=== PATIENT | male | born 1960 | race Caucasian/White ===

== ENCOUNTER → 2018-06-06 | Outpatient (CLI) | payer OTHER ==
[~2018-06-06] VITALS: Ht 180.3 cm; Wt 74.8 kg
[~2018-06-06] MED LIST: IRON325 PO; LOSARTAN-HCTZ1 EAC1 PO; SYNTHROID100 MC1 PO; VITAMIN D31000 UNIT PO
--- NOTE | ~2018-06-06 | PATH ---
[facility] [place] [address] PATHOLOGY RPT PROCEDURE Name: TANIA LOBO Room #: REG [facility] Zuleyka.#: [id number] Admission: 06/06/18 Date of : 64 Discharge: Report #: [id number] Path Case #: [id number] [facility] Accession Number: [id number] . 01 Material submitted: . PART A: BIOPSY CECAL POLYP X2 PART B: POLYP AT ASCENDING COLON PART C: POLYP AT DESCENDING COLON . 01 Clinical history: . Pre-OP DX: Screening Post-OP DX: Colon polyps, hemorrhoids . 02 Diagnosis: A. Poly x 2, cecal polyp, endoscopic biopsy: - One fragment showing tubular adenoma; negative for high-grade dysplasia. - Remainder fragments showing reactive and hyperplastic changes without any dysplasia. . B. Polyp, at ascending colon, endoscopic biopsy: - Multiple fragments with tubular adenoma. - Few with extensive cautery limiting interpretation (please see comment). . . C. Polyp, at descending colon, endoscopic biopsy: - Tubulovillous adenoma. - Negative for high-grade dysplasia (please see comment). [facility]/06/07/2018 . 02 Comment: B. Examination shows multiple fragments of a tubular adenoma. Few show stratification of nuclei along with hyperchromasia. These fragments; however, are associated with marked cautery limiting interpretation within these areas and are worrisome for high-grade dysplasia. Please correlate with endoscopic findings for complete removal of this polyp. . Co-review (B1 and C3): Dr. Kaylyn Macias (IUV:pit 06/07/2018) . 02 Electronically signed: . Samra Velasco MD, Pathologist NPI- [id number] . 01 Gross description: . A. Received in formalin labeled "Tania Lobo, BX of cecal polyp x2," are multiple segments of phan soft tissue measuring 1.5 x 0.2 x 0.1 [place] [address] PATHOLOGY RPT PROCEDURE Name: TANIA LOBO T Room #: REG [facility]#: [id number] Admission: 06/06/18 Date of : 64 Discharge: Report #: [id number] Path Case #: [id number] aggregate dimensions. The specimen is filtered and entirely submitted in cassette A1. . B. Received in formalin labeled "Tania Lobo, polyp at ascending colon x2," are multiple segments of phan soft tissue measuring 2.3 x 0.9 x 0.3 cm in aggregate dimensions. The specimen is filtered and entirely submitted in cassette B1. . C. Received in formalin labeled "Tania Lobo, polyp descending colon," is a 0.8 x 0.7 x 0.5 cm polypoid piece of phan soft tissue. The presumed margin is inked and the specimen is sectioned perpendicular to the margin and entirely submitted in cassette C1. Additionally received in the same container is a 0.8 x 0.5 x 0.4 cm polypoid piece of phan soft tissue. The margin is inked and the specimen is sectioned perpendicular to the margin and entirely submitted in cassette C2. Also received in the container are multiple fragments of phan soft tissue measuring 0.9 x 0.8 x 0.2 cm in aggregate dimensions. The specimen is filtered and entirely submitted in cassette C3. (TSD; 06/06/2018) TOB/TOB . 02 Pathologist provided ICD-10: D12.0, D12.2, D12.4 . 02 CPT . 342800, 994293, 486643 Specimen Comment: A courtesy copy of this report has been sent to Specimen Comment: [phone], . Specimen Comment: Report sent to / DR SAMAYOA Performed at: [address], [place] [id number] MD Fede Mtz MD Phone: [phone] Performed at: [address] [id number] MD Samra Velasco MD Phone: [phone]
--- NOTE | ~2018-06-06 | P ---
[facility] [place] [place] [address] PROCEDURE REPORT Name: TANIA PHILLIPS Room #: REG [facility]#: [id number] Admission: 06/06/18 Attend Phys: Raoul Salazar Discharge: Date of : 64 Report #: [id number] THIS REPORT FOR: //name// CC: Raoul Bauer MD DATE OF SERVICE: 06/06/2018 PROCEDURE PERFORMED: Colonoscopy with polypectomies. HISTORY OF PRESENT ILLNESS: The patient is a 58-year-old male here for routine screening colonoscopy. Last colonoscopy was approximately 10 years ago and reportedly negative. He does have a family history of colon cancer in a sister who was diagnosed in her 60s. He denies any symptoms. DESCRIPTION OF PROCEDURE: The risks and benefits of the procedure were explained to the patient, those risks including but not limited to bleeding, perforation and the risk of sedation. He understood these risks and gave informed consent. Sedation was given using propofol per anesthesia. Next, a digital rectal exam was initially performed, which was normal. Next, using a standard Olympus colonoscope, the scope was placed in the patient's anus and advanced under direct vision to the cecum. The overall prep was excellent. In the cecum, there were two 3-4 mm sessile polyps, both removed with cold forceps, otherwise normal. The ileocecal valve was normal. In the ascending colon, 2 polyps were noted, one was 4 mm in size and removed with cold forceps, the other was 1.5 cm in size and this was removed in a piecemeal fashion by snare cautery. It was a sessile polyp. The transverse colon was normal. In the descending colon, there was a 1.2 cm partially pedunculated polyp also removed in a piecemeal fashion. The rectal mucosa was normal. On retroflexion, internal hemorrhoids were noted. No evidence of bleeding. The scope was then withdrawn and the procedure terminated. The patient tolerated the procedure well. IMPRESSION: 1. Several colon polyps as described above. 2. Internal hemorrhoids. 3. Otherwise, normal colonoscopy. RECOMMENDATIONS: 1. Await biopsy results. 2. Would recommend repeat colonoscopy in 3 years due to family history and the size of the polyps. [address] [address] PROCEDURE REPORT Name: JACQUELINETANIA Tory Room #: REG [facility] Zuleyka.#: [id number] Admission: 06/06/18 Attend Phys: Raoul Salazar Discharge: Date of : 64 Report #: [id number] Thank you for allowing me to participate in his care. By: [id number] Raoul Johnson MD /nt
== END | disposition home or self-care (01) ==
LOC: GI 06:50
DX: Z12.11 Encounter for screening for malignant neoplasm of colon (principal); Z80.0 Family history of malignant neoplasm of digestive organs; D12.0 Benign neoplasm of cecum; D12.2 Benign neoplasm of ascending colon; D12.4 Benign neoplasm of descending colon; K63.5 Polyp of colon; K64.8 Other hemorrhoids; I10 Essential (primary) hypertension; E03.9 Hypothyroidism, unspecified; Z98.890 Other specified postprocedural states; Z79.899 Other long term (current) drug therapy